=== PATIENT | female | born 1975 | race Two or more races ===

== ENCOUNTER → 2016-11-18 | Outpatient (CLI) | payer OTHER ==
[2016-11-18 12:30] LABS: BUN 7 mg/dL (7-18); GFR (ESTIMATED) 110 ML/MIN (59-)
[2016-11-19 07:36] LABS: Creatinine, Urine 129.1 mg/dL (Not Estab.)
== END ==
LOC: LAB 10:41
PROVIDERS: Nurse Practitioner Family
DX: R53.81 Other malaise (principal); E11.9 Type 2 diabetes mellitus without complications; E03.9 Hypothyroidism, unspecified

== ENCOUNTER → 2017-03-02 | Outpatient (CLI) | payer OTHER ==
[2017-03-02 17:12] LABS: HEMOGLOBIN 13.2 g/dL (12.2-16.2); LYMPH # 1.9 K/mm3 (0.7-4.5); LYMPH % 26.5 % (10-50.0)
[2017-03-02 17:35] LABS: BUN 7 mg/dL (7-18); GFR (ESTIMATED) 92 ML/MIN (59-)
[2017-03-04 08:36] LABS: Folate (Folic Acid) 15.3 ng/mL (>3.0)
[2017-03-04 16:39] LABS: HBsAg Screen Negative (Negative); Hep A Ab, IgM Negative (Negative); Hep B Core Ab, IgM Negative (Negative); Hep C Virus Ab <0.1 (0.0-0.9)
== END ==
LOC: LAB 16:59
PROVIDERS: Nurse Practitioner Family
DX: R00.2 Palpitations (principal); R41.3 Other amnesia; R74.8 Abnormal levels of other serum enzymes